=== PATIENT | female | born 1970 | race American Indian/Alaskan Native ===

== ENCOUNTER 2020-06-01 16:40 | Inpatient (IN) | payer BC, OTHER ==
[~2020-06-01] VITALS: Ht 160 cm; Wt 115.0 kg
[~2020-06-01 16:40] MED LIST: ALLEGRA ALLERGY60 MG PO; FLUTICASONE PRO16 GM NAS; IBU600 MG PO; METFORMIN HCL500 M2 PO; ZESTRIL40 MG PO
[2020-06-01] MEDS ORDERED: CRESTOR10 MG PO (17:12)
--- NOTE | 2020-06-01 19:15 | NUR ---
pt ARRIVED TO FLOOR. AMBULATED FROM STRETCHER TO BED. HELLEN ELLIOTT IN ROOM TO DO ADMISSION.
--- NOTE | 2020-06-01 19:40 | NUR ---
pt RESTING IN BED. VSS. ORIENTATION TO ROOM AND CALL LIGHT PROVIDED. IVF INFUSING WNL. pt DENIES ANY NEEDS AT THIS TIME. NPO STATUS, EDUCATION PROVIDED, pt VERBALIZES UNDERSTANDING.
--- NOTE | 2020-06-01 20:54 | NUR ---
ASSESSMENT DONE. pt REPORTED 3/10 PAIN AT REST, INCREASED TO 6 WHEN AMBULATING TO BATHROOM. IV ANTIBIOTICS INFUSING (SEE MAR). DR LEI TO ROOM.
--- NOTE | 2020-06-01 22:34 | NUR ---
pt SIGNED CONSENT FORM. DISCUSSED PLAN OF CARE. IV ANTIBIOTIC INFUSING AND BOLUS RUNNING (SEE MAR). pt UP TO VOID. BACK TO BED. REPORTED 4/10 PAIN, REQUESTED PRN PAIN MED GIVEN (SEE MAR). DISCUSSED HOME CPAP USE. AFTER CONSULTING WITH RT, pt DECIDED TO SLEEP ELEVATED TONIGHT AND HAVE HER HOME CPAP BROUGHT IN TOMORROW. CALL LIGHT WITHIN REACH.
--- NOTE | 2020-06-01 23:49 | NUR ---
BOLUS INFUSED. IVF INFUSING (SEE MAR). pt REPORTED PAIN IS IMPROVED, REFUSED MEDS A THIS TIME.
--- NOTE | 2020-06-02 00:40 | NUR ---
IV PUMP ALARMING. pt RESTING IN BED. NO REQUESTS AT THIS TIME. CALL LIGHT WITHIN REACH.
--- NOTE | 2020-06-02 02:45 | NUR ---
ASSESSMENT DONE. pt REPORTED 6/10 PAIN, PRN GIVEN (SEE MAR). pt REPORTED DISCOMFORT IN LEFT ARM WITH IV, BLOOD RETURN NOTED. ASSISTED TO REPOSITION. NO FURTHER REQUESTS AT THIS TIME CALL LIGHT WITHIN REACH.
--- NOTE | 2020-06-02 04:20 | NUR ---
ROUNDED ON pt. SNORING. RESPIRATIONS UNLABORED AND REGULAR. CALL LIGHT WITHIN REACH.
--- NOTE | 2020-06-02 05:46 | NUR ---
IV ANTIBIOTIC GIVEN (SEE MAR). pt REPORTED 3/10 PAIN, "OKAY FOR RIGHT NOW" DISCUSSED PAIN MANAGEMENT. VITALS AND I&O RECORDED. CALL LIGHT WITHIN REACH.
--- NOTE | 2020-06-02 06:27 | NUR ---
pt REPORTED 5/10 PAIN, PRN GIVEN (SEE MAR). CALL LIGHT WITHIN REACH.
--- NOTE | 2020-06-02 06:28 | NUR ---
pt ARRIVED AT BEGINNING OF SHIFT. NPO SINCE BEFORE 1999. IV PAIN MEDS X3. SBA. IVF AND ANTIBIOTICS. SCDS. CONSENT SIGNED AND ON CHART. USES CALL LIGHT APPROPRIATELY.
--- NOTE | 2020-06-02 07:05 | NUR ---
In room for bedside assessment given by Angelina MACEDO. Pt is NPO. Pt reports 3/10 pain and no nausea. Pt lying in bed, table and call light within reach.
[2020-06-02] MEDS ORDERED: FENOFIBRATE160 MG PO (07:10)
[2020-06-02] MEDS ORDERED: HYDROCHLOROTHIA25 MG PO (07:15)
--- NOTE | 2020-06-02 07:58 | HP ---
[facility] [address], [place] [address] Signed ADMISSION DATE: 06/01/2020 PROBLEM: Inflammatory segment of small bowel with extraperitoneal air. HISTORY OF PRESENT ILLNESS: This morbidly obese 49-year-old [place] woman is known to me from the past having undergone laparoscopic cholecystectomy in 2007. Additionally, she underwent colonoscopy by me in March 2019, where she was noted to have extensive sigmoid diverticulosis. She has had approximately four days of nagging srv-xe-khvzs abdominal pain, which has worsened overtime. Her pain is most dominant in the left lower quadrant. She presented to the emergency room for this problem after being evaluated by Dr. Pena, at [facility], who thought her likely to have acute diverticulitis. She was seen at approximately [address] Calderon, who thought likely she had acute diverticulitis based on tenderness in the left lower abdomen and known diverticulosis. Lab studies were essentially normal with a white count of only 10.6, hematocrit of 34.6, a platelet count of 310,000, and normal electrolytes. A CT scan of the pelvis was performed confirming the clinical diagnosis, which showed diverticulosis, but did not show diverticulitis per se. Instead there was a focal segment of small bowel in the mid jejunum located in the left mid abdomen with surrounding soft tissue stranding inflammatory changes and multiple pockets of small extraluminal gas within the adjacent small bowel mesentery. This was most consistent with a small bowel perforation. Fatty liver was noted as well as significant abdominal wall obesity. She is admitted for further evaluation and care. PAST MEDICAL HISTORY: Significant for morbid obesity, as previously noted. Additionally, she has undergone cholecystectomy as described. She is considered to have qfs-yzniocd-hzpqjezoh diabetes mellitus. She does not smoke. In addition to her obesity, she does have hypertension and some reactive airways. ALLERGIES: She has no known drug allergies. CURRENT MEDICATIONS: Include, 1. Sonal 60 mg p.o. daily for allergies. 2. Crestor (Rosuvastatin) 20 mg p.o. daily. 3. Flovent 50 mcg daily. Electronically Signed By: VIC LEI MD 06/02/20 0758 PATIENT NAME: KAILEE ORTIZ HISTORY AND PHYSICAL DATE OF : 66 REPORT #: [id number] PHYSICIAN: VIC LEI MD PCP: ENRICO PENA MD REPORT IS CONFIDENTIAL AND NOT TO BE RELEASED WITHOUT AUTHORIZATION [facility] [address], [place] [address] Signed 4. Hydrochlorothiazide 25 mg p.o. daily. 5. Motrin 800 mg p.o. daily. 6. Zestril (lisinopril) 40 mg p.o. daily. 7. Metformin extended release 500 mg p.o. daily. REVIEW OF SYSTEMS: She feels a bit thirsty. Abdominal pain is persistent and located in the low abdomen in a bandlike configuration. She has no upper abdominal pain. She is not particularly hungry. She does not feel nauseated. PHYSICAL EXAMINATION: GENERAL: Very obese [place] woman, accompanied by her . HEENT: Mucous membranes are dry. Trachea is midline. CHEST: Clear. HEART: Regular without murmur. ABDOMEN: Quite markedly obese. There is tenderness in the left mid abdomen and to lesser extent in the left lower quadrant. She does have some mild diffuse tenderness as well. EXTREMITIES: Show no clubbing, cyanosis, or edema. LABORATORY DATA: Lab studies are as previously noted. CT scan was reviewed and report reviewed as well. Numerous diverticula are seen without sign of acute diverticulitis to my examination. The small bowel in question appears to be on the left side of the abdomen above the level of the umbilicus. ASSESSMENT AND PLAN: The patient has a segment of inflamed small bowel to the left of the abdomen, initially presenting as clinical diverticulitis. There is no evidence of diverticulitis per se at this point. The possibility of perforation of the segment of small bowel due to toothpick or other implement is always considered. The patient denies any recent ingestion of any food that may have a bone or toothpick, and therefore that etiology is somewhat less likely. The possibility of a small bowel diverticulum with perforation is also considered. She does not have generalized free air and the extraluminal air noted on these images seems to be well contained with surrounding fat, mostly from mesentery. She is begun on broad-spectrum antibiotic meropenem and will undergo additional fluid resuscitation. Likely she will need laparoscopy and even possibly laparotomy to reconcile this problem. Unlike perforated diverticulitis, perforation of small bowel with extraluminal air is more appropriately treated with surgical intervention, then observation and antibiotics alone. We discussed all this. Electronically Signed By: VIC LEI MD 06/02/20 0758 PATIENT NAME: KAILEE ORTIZ HISTORY AND PHYSICAL DATE OF : 66 REPORT #: [id number] PHYSICIAN: VIC LEI MD PCP: ENRICO PENA MD REPORT IS CONFIDENTIAL AND NOT TO BE RELEASED WITHOUT AUTHORIZATION [address] [address] Signed MD QUIN Willis/MODL /[id number] cc: Jean-Pierre Pena MD Copies: JEAN-PIERRE CALDERON JAMES MD ~ Electronically Signed By: VIC LEI MD 06/02/20 0758 PATIENT NAME: KAILEE ORTIZ PRAMOD HISTORY AND PHYSICAL DATE OF : 66 REPORT #: [id number] PHYSICIAN: VIC LEI MD PCP: ENRICO PENA MD REPORT IS CONFIDENTIAL AND NOT TO BE RELEASED WITHOUT AUTHORIZATION
--- NOTE | 2020-06-02 08:35 | NUR ---
In room for pt assessment and med pass. Pt reports 3/10 resting pain and no nausea. Pt assessment complete, VSS, see charting. Pt able to take meds without difficulty. Gladys CHAN in room assisting with cares, appropriately. Pt alert and oriented and pleasant upon greeting and assessment. Pt sitting up in bed, table and call light within reach.
--- NOTE | 2020-06-02 10:22 | NUR ---
In room for rounding, pt reports no nausea and 3/10 resting pain. Pt anticipating procedure sometime today, no specific time given. Pt going to have clorhexadine wipedown done now as it is good for 6hrs. Pt sitting up in bed, bed in lowest position, table and call light within reach. in the room.
--- NOTE | 2020-06-02 10:45 | NUR ---
Spoke with Tahira, she lives with her family with 5 people in her home. States everyone will help her if needed. DC plan is pending depending on TF surgery today.
--- NOTE | 2020-06-02 10:53 | NUR ---
PT ALERT, ORIENTED AND SUPPORTED BY HER SASHA. PT IS PLEASANT AND FEELS SHE IS INFORMED ABOUT POC. SHE KNOWS DR LEI IS FITTING HER INTO HIS SURGERY SCHEDULE TODAY AND HOPES TO HAVE JUST A LITTLE NOTICE BEFORE TO GET HERSELF EMOTIONALLY READY.PT CAME THINKING SHE WOULD BE GIVEN SOME MEDS AND SENT HOME.PT INSTEAD IS HAVING SURGERY. INFORMED SUPERVISING NURSE YVETTE REGARDING NOTICE GIVEN TO PT IF POSSIBLE. PT REQUESTED PRAYER, WILL FOLLOW
--- NOTE | 2020-06-02 11:26 | NUR ---
In room for rounding. Pt back in bed, after being in the chair a while. Pt had her pre-surgical chlorhexadine bath and is awaiting her procedure with new gown and LR w/straight tubing reading at bedside. Pt reports 3/10 pain and no nausea. Pt left in bed, table and call light within reach.
--- NOTE | 2020-06-02 11:34 | NUR ---
In room. Pt up to bathroom. Pt reports increased pain but no dizziness or nausea upon standing or ambulating. Pt back to bed, awaiting procedure. Table and call light within reach. at bedside, TV on.
--- NOTE | 2020-06-02 12:45 | NUR ---
Pt left for procedure, picked up by Kristen [employer]EC[employer]ODUC[employer]. Kristen made aware that pt wears CPAP at night at home. Pt just made us aware.
--- NOTE | 2020-06-02 12:49 | NUR ---
PT TO THE OR AT THIS TIME VIA BED. FLAGYL ABX SENT TO OR WITH PATIENT AND WAS GIVEN TO DIPAK MACEDO. THIS ABX IS DUE AT 1400.
--- NOTE | 2020-06-02 16:07 | NUR ---
06/02/20 1607 Liliana Dupree 1554- PT ARRIVES TO PACU NONAROUSABLE TO NOXIOUS STIMULI WITH AN OPA IN PLACE. RESP EVEN AND UNLABORED. OXYGEN SAT MID TO HIGH 90'S ON 10L VIA MASK. PT WILL PERIODICALLY OBSTRUCT. PT NEEDING A JAW LIFT WELL TO MAINTAIN PATENT AIRWAY. 8957- PT'S PILLOW REMOVED AND HEAD ADJUSTED TO MAINTAIN PATENT AIRWAY WITHOUT JAW LIFT. OPA REMAINS IN PLACE.
--- NOTE | 2020-06-02 17:00 | NUR ---
Pt brought to the floor by Liliana MACEDO from surgery. Pt ended up having a lap-assisted small bowel resection, x3 lap sites, currently not draining. Pt procedure went well, only difficulty is keeping pts oxygen sat WNL, pt currently on 3L oxygen via NC satting at 99%. Pt reports 6/10 pain but wants to "wait a while before trying the morphine". SCDs on, table and call light within reach, CPOX on, in room.
--- NOTE | 2020-06-02 18:51 | NUR ---
PT UP TO THE BS COMMODED VOIDED AND THEN BACK TO BED. SOME LIGHTHEADNESS NOTED, BUT PT STEADY ON HER FEET. AT THE BEDSIDE DENIES AND ISSUES AT THIS TIME. THE TV REMAINS OUT OF SERVICE.
--- NOTE | 2020-06-02 19:16 | NUR ---
RECEIVED REPORT FROM HELLEN KWON. pt RESTING IN BED. REPORTED 3/10 PAIN. VISUALIZED LAP SITES, SCANT DRIED DRAINAGE ON STERISTRIPS. ON 3L O2 AT 99%. TITRATED TO ROOM AIR MAINTAINING SATS >95%. TAKING SIPS OF WATER. NO REQUESTS AT THIS TIME. CALL LIGHT WITHIN REACH. VITALS RECORDED.
--- NOTE | 2020-06-02 20:00 | NUR ---
IN TO DO LAST SET OF POST OP VITALS. PROVIDED JUICE AND JELLO. NO CHANGES IN LAP SITES. CALL LIGHT WITHIN REACH.
--- NOTE | 2020-06-02 20:22 | NUR ---
CALL LIGHT ON. pt HAD SLIGHT INCONT. VOID. UP SBA TO BSC. LINENS CHANGED. BACK TO BED. SATS >95% ON ROOM AIR. CALL LIGHT WITHIN REACH.
--- NOTE | 2020-06-02 21:40 | NUR ---
IN TO DO ASSESSMENT. pt UP TO VOID AND BACK TO BED, SBA. DR LEI ROUNDED. pt's QUESTIONS ANSWERED. ASSESSMENT DONE. NO CHANGES TO DRESSINGS. MEDICATIONS GIVEN (SEE MAR), PAIN 6/10 PRN PAIN MEDS GIVEN. SETTLED IN BED WITH HOME CPAP. SCDS ON. CALL LIGHT WITHIN REACH.
--- NOTE | 2020-06-02 21:42 | PATH ---
[facility] [address], [place] [address] Signed ORDERING PHYSICIAN: Nimisha Younger MD PATIENT NAME: KAILEE ORTIZ GENDER: F : 1970 Prior History: No cases found. SPECIMEN(S): MOLECULAR PATHOLOGY RESULTS: SARS-CoV-2 Not Detected ADDITIONAL NOTES.: The [place] Fusion SARS-CoV-2 Assay is a multiplex real-time PCR (RT-PCR) in vitro diagnostic test intended for the qualitative detection of RNA from SARS-CoV-2 from individuals who meet COVID-19 clinical and/or epidemiological criteria. In general, SARS-CoV-2 RNA can be detected during the acute phase of infection. Positive results indicate the presence of SARS-CoV-2 RNA. Clinical correlation with patient history and other diagnostic information is necessary to determine patient infection status. Positive results do not rule out bacterial infection or co-infection with other viruses. Negative results do not preclude SARS-CoV-2 infection and should not be used as the sole basis for patient management decisions. Negative results must be combined with other clinical observations, patient history, and epidemiological information. The [place] Fusion SARS-CoV-2 Assay is not yet approved or cleared by the [place] FDA. When there are no FDA-approved or cleared tests available, and other criteria are met, FDA can make tests available under an emergency access mechanism called an Emergency Use Authorization (EUA). The EUA for this test is supported by the Office Analyst of Health and Human Service's (HHS's) declaration that circumstances exist to justify the emergency use of in vitro diagnostics for the detection and/or diagnosis of the virus that causes COVID-19. This EUA will remain in effect for the duration of the COVID-19 declaration justifying emergency of IVDs, unless it is terminated or revoked by FDA, after which the test may no longer be used. The [place] Fusion SARS-CoV-2 Assay is for use only under EUA PATIENT NAME: KAILEE ORTIZ PRAMOD PATHOLOGY DATE OF : 66 REPORT #: [id number] PHYSICIAN: BRENDEN PATHOLOGY PCP: ENRICO FOWLER MD REPORT IS CONFIDENTIAL AND NOT TO BE RELEASED WITHOUT AUTHORIZATION [facility] [address] [place] [id number] Signed in laboratories certified under the Clinical Laboratory Improvement Amendments of 1988 (CLIA) to perform high complexity tests. [facility] is certified under CLIA to perform high complexity clinical laboratory testing. PERFORMING LABORATORY.: Molecular testing was performed by [facility] [place] [address] (Software Quality Automation Engineer: Mohsen Perez D.O.; CLIA#: [id number]) Diagnostician: System Interface Pathologist Electronically Signed 06/02/2020 Copies: ~ PATIENT NAME: KAILEE ORTIZ PRAMOD PATHOLOGY DATE OF : 66 REPORT #: [id number] PHYSICIAN: BRENDEN KAT PCP: ENRICO FOWLER MD REPORT IS CONFIDENTIAL AND NOT TO BE RELEASED WITHOUT AUTHORIZATION
--- NOTE | 2020-06-02 22:27 | NUR ---
ROUNDED ON pt. RESTING IN BED WITH CPAP ON, RESPIRATIONS REGULAR AND UNLABORED. CALL LIGHT WITHIN REACH.
--- NOTE | 2020-06-03 00:25 | NUR ---
ROUNDED ON pt. RESTING IN BED WITH EYES CLOSED, CPAP IN PLACE. O2 SAT 94%. CALL LIGHT WITHIN REACH.
--- NOTE | 2020-06-03 01:25 | NUR ---
IN TO DO VITALS. pt AWAKE ON CPAP. UP TO VOID AND BACK TO BED. NO CHANGES ON INCISION SITES. ASSESSMENT DONE. PRN PAIN MEDS FOR 5/10 PAIN. CALL LIGHT WITHIN REACH.
--- NOTE | 2020-06-03 02:00 | NUR ---
IV BEEPING, ERROR RESOLVED. pt REPORTED THAT PAIN IS "OKAY" DENIED NEED FOR MORE PAIN MEDICATION AT THIS TIME. CALL LIGHT WITHIN REACH.
--- NOTE | 2020-06-03 03:39 | NUR ---
IV PUMP BEEPING, ERROR RESOLVED. NO REQUESTS AT THIS TIME. CALL LIGHT WITHIN REACH.
--- NOTE | 2020-06-03 04:05 | NUR ---
CALL LIGHT ON. pt UP TO VOID AND BACK TO BED. NO FURTHER REQUESTS AT THIS TIME. CALL LIGHT WITHIN REACH.
--- NOTE | 2020-06-03 04:32 | NUR ---
pt UP TO VOID AND BACK TO BED. REPORTED SLIGHT AMOUNT OF NAUSEA THAT SUBSIDED QUICKLY. RESTING IN BED. NO FURTHER REQUESTS AT THIS TIME. CALL LIGHT WITHIN REACH.
--- NOTE | 2020-06-03 05:47 | NUR ---
IN TO GIVE MEDICATIONS (SEE MAR). pt REPORTED 4/10 PAIN, PRN GIVEN. REPORTED NAUSEA, PRN GIVEN. VITALS AND I&O RECORDED. NO FURTHER REQUESTS AT THIS TIME. CALL LIGHT WITHIN REACH.
--- NOTE | 2020-06-03 06:43 | NUR ---
IV PUMP BEEPING, ERROR RESOLVED. pt REPORTED THAT PAIN IS "OKAY" AND NAUSEA HAS IMPROVED. CALL LIGHT WITHIN REACH.
--- NOTE | 2020-06-03 07:10 | NUR ---
To bedside for morning shift report from Humaira MACEDO. Report included that pt was on CPAP through the night and off before 0530. The pt had VSS and an uneventful evening. Pt lying in bed, eyes closed, table and call light within reach.
--- NOTE | 2020-06-03 07:49 | NUR ---
Call from [facility] for update and chart notes sent as requested.
--- NOTE | 2020-06-03 08:30 | NUR ---
In room for morning assessment and med pass. Pt assisted to bathroom, was able to void 300mls of dark yellow clear urine. Pt up to chair for breakfast. Pt verbalizes that she is feeling good this morning and agrees to ambulate with me later this morning. Pt tolerating clear diet well, pt has been able to pass gas this morning. Pt assessment complete, VSS. Pt able to take all meds without difficulty. Pt left in chair, table and call light within reach, in room.
--- NOTE | 2020-06-03 10:21 | NUR ---
In room for rounding. Pt up to bathroom, and returned to chair. Pt reports "feeling good" and has no nausea and minimal pain. Pt to chair, table and call light within reach, in the room.
--- NOTE | 2020-06-03 10:40 | NUR ---
Spoke with pt, spouse is in the room. She denies complaints and states she is feeling better today following surgery. Denies needs.
--- NOTE | 2020-06-03 10:45 | NUR ---
Pt able to ambulate one full lap around both nurses stations. Pt tolerated it well, reporting no pain or nausea before or after. Pt had one moment of dizziness lasting about 2 seconds when she turned her head too quickly while talking. It resolved quickly and pt denied dizziness any other time during ambulation. Pt returned to room and chair, table and call light within reach. at bedside.
--- NOTE | 2020-06-03 11:15 | NUR ---
In room for rounding. Pt sitting up in chair, reporting no pain or nausea, table and call light within reach, at bedside.
--- NOTE | 2020-06-03 11:58 | NUR ---
In room responding to call light, pt IV pump alarming. Pt ABX infusion complete. Pt reports swollen hands and feet, minimal swelling present in hands and feet. IV fluids stopped since pts hydration status is WNL, voiding sufficiently and taking in oral fluids sufficiently. Pt sitting in chair, table and call light within reach, at bedside.
--- NOTE | 2020-06-03 11:59 | NUR ---
PT ALERT, ORIENTED AND JUST SITTING DOWN IN CHAIR. GAVE ASSISTANCE AND ALSO ENCOURAGEMENT. PT EXPLAINED HER SURGERY, PAIN DOWN FROM 8 TO 2. IN RM. GAVE P.BENJAWL AND G.POST WITH BLESSING.
--- NOTE | 2020-06-03 12:23 | NUR ---
In room for rounding. Pt sitting up in chair having her clears lunch. Pt reports no pain or nausea. Table and call light within reach, at bedside.
--- NOTE | 2020-06-03 13:55 | NUR ---
PT MEDICATED WITH 100MG TYLENOL AND 30MG IVP TORDAL AT THIS TIME FOR ABD PAIN. PT REMAINS UP IN THE CHAIR AT THIS TIME.
--- NOTE | 2020-06-03 15:50 | NUR ---
In room for rounding. Pt and watching tablet. Pt reports no pain or nausea. Table and call light within reach.
--- NOTE | 2020-06-03 16:06 | NUR ---
PATIENT CHANGED HER GOWN AND ALSO WE DID A SHAMPOO CAP I COMBED IT AND PUT A LOOSE BRAID. PATIENT IS SITTING UP IN HER CHAIR WATCHING A MOVIE WITH A FAMILY MEMBER IN HER ROOM. ALSO SHE AND I AND FAMILY MEMBER DID TWO AND HALF LAPS AROUND MED SURG.
--- NOTE | 2020-06-03 17:20 | NUR ---
In room for rounding. Pt was up to bathroom. Pt had her first BM since surgery! Pt back to the chair, table and call light within reach.
--- NOTE | 2020-06-03 19:04 | NUR ---
RECEIVED REPORT FROM HELLEN KWON. pt RESTING IN CHAIR. REPORTED PASSING GAS, A BM, AND WALKING. PAIN IS "OKAY, JUST A LITTLE SORE." DISCUSSED PLAN OF CARE AND PAIN MANAGEMENT. NO REQUESTS AT THIS TIME. WHITEBOARD UPDATED.
--- NOTE | 2020-06-03 20:50 | NUR ---
CALL LIGHT ON. pt VOICED CONCERN ABOUT IV, ASSESSED, FLUSHES WELL NO PAIN AT SITE, NO REDNESS. WILL CONTINUE TO MONITOR. ASSESSMENT DONE, DRESSING INTACT, NO NEW DRAINAGE NOTED. VITALS AND I&O RECORDED. MEDICATIONS GIVEN (SEE MAR). pt REPORTED A HEADACHE. DISCUSSED PAIN MANAGEMENT. pt AMBULATED SBA TO BED. CPAP SETUP. NO FURTHER REQUESTS AT THIS TIME. CALL LIGHT WITHIN REACH.
--- NOTE | 2020-06-03 22:00 | NUR ---
IN TO GIVE PAIN MEDS AND IV ANTIBIOTIC. pt REPORTED 2/10 PAIN. NO FURTHER REQUESTS AT THIS TIME. IV ABX INFUSING. CALL LIGHT WITHIN REACH.
--- NOTE | 2020-06-03 22:55 | NUR ---
CALL LIGHT ON. pt HAD INCONT VOID. AMB TO BSC AND BACK TO BED. FRESH GOWN. IV ANTIBIOTIC COMPLETE. SL. CALL LIGHT WITHIN REACH.
--- NOTE | 2020-06-03 23:20 | NUR ---
CALL LIGHT ON. pt UP TO VOID, INCONT OF URINE. REQUESTED TO WALK. AMB IN HALLS X3 LAPS. BACK TO BED. CALL LIGHT WITHIN REACH.
--- NOTE | 2020-06-04 01:27 | NUR ---
ROUNDED ON pt. RESTING IN BED WITH CPAP IN PLACE. RESPIRATIONS REGULAR AND UNLABORED. CALL LIGHT WITHIN REACH.
--- NOTE | 2020-06-04 03:52 | NUR ---
CALL LIGHT ON. pt REPORTED TO VOIDS, INDEPENDENT IN THE ROOM. ASSESSMENT DONE. INCISIONS UNCHANGED, BOWEL TONES ACTIVE. REPORTED PAIN IS "OKAY" REFUSED PAIN MEDICATION AT THIS TIME. CALL LIGHT WITHIN REACH.
--- NOTE | 2020-06-04 06:10 | NUR ---
pt REPORTED VOID. IV ANTIBIOTICS INFUSING. REPORTED 3/10 PAIN. PRN GIVEN (SEE MAR). CALL LIGHT WITHIN REACH.
--- NOTE | 2020-06-04 07:25 | NUR ---
Received morning shift report from Humaira MACEDO. In report: Pt had a few incontinent episodes last night, due to urgency (and not getting the SCDs off fast enough). Pt has been ambulating frequently and is otherwise independent in the room, so SCDs were removed/DCd. Pt in bed, eyes closed, breathing even and unlabored. Table and call light within reach. Off CPAP since around 0500 this morning.
--- NOTE | 2020-06-04 07:47 | NUR ---
PATIENT SITTING UP IN BED. WHITE BOARD UPDATED. CALL LIGHT WITHIN REACH. NO OTHER NEEDS AT THIS TIME
--- NOTE | 2020-06-04 09:11 | NUR ---
PATIENT SITTING UP IN BED. RN IN ROOM. VITAL SIGNS DONE BY RN. I&O DONE. CALL LIGHT WITHIN REACH. NO OTHER NEEDS AT THIS TIME
--- NOTE | 2020-06-04 10:10 | NUR ---
In room for rounding. Pt up walking and conversing with her . Pt denies pain and nausea at this time. Pt left as she was. table and call light within reach.
--- NOTE | 2020-06-04 11:30 | NUR ---
In room for rounding. Pt was up walking around and playing cards with . Pt reports no pain or nausea at this time. Pt left as she was, with no further needs at this time.
--- NOTE | 2020-06-04 11:48 | NUR ---
PATIENT AMBULATING IN THE HALLWAY WITH HER
--- NOTE | 2020-06-04 13:24 | NUR ---
PATIENT SITTING UP IN CHAIR. VITAL SIGNS AND I&O DONE. CALL LIGHT WITHIN REACH. NO OTHER NEEDS AT THIS TIME
[2020-06-04] MEDS ORDERED: ACETAMINOPHEN500 MG PO (13:48)
[2020-06-04] MEDS ORDERED: BACTRIM DS TAB1 EACH PO (13:49)
[2020-06-04] MEDS ORDERED: MOTRIN IB200 MG PO (13:51)
--- NOTE | 2020-06-04 14:25 | NUR ---
CALL LIGHT ANSWERED. PATIENT SITTING UP IN CHAIR. IN ROOM. PATIENT ASKS FOR PAIN MEDICATION. RN NOTIFIED. CALL LIGHT WITHIN REACH. NO OTHER NEEDS AT THIS TIME
--- NOTE | 2020-06-04 15:19 | NUR ---
In room for DC. Pt given DC packet. Pt and verbalize understanding of DC instructions, medications, and follow up care plans. All questions answered. Pt VSS. Pt IV DCd WNL. Pt left to dress herself. Will call when ready to walk out with wheelchair.
--- NOTE | 2020-06-04 15:35 | NUR ---
PATIENT SITTING UP IN CHAIR. IN ROOM. THE FINAL VITAL SIGNS WERE OBTAINED PRIOR TO DISCHARGE FROM THE UNIT
--- NOTE | 2020-06-06 15:17 | OR ---
[facility] [address], [place] [address] Signed DATE OF OPERATION: 06/02/2020 SURGEON: Vic Lei MD PREOPERATIVE DIAGNOSES: 1. Perforated small bowel with perienteric fluid collection in inflammatory process. 2. Morbid obesity. POSTOPERATIVE DIAGNOSES: 1. Perforated small bowel with perienteric fluid collection in inflammatory process. 2. Morbid obesity. 3. Distinct defect in mesenteric aspect of mid jejunum with associated intramesenteric process. No evidence of foreign body. PROCEDURES: Laparoscopic assisted small bowel resection with extra-abdominal enteroenterostomy (end-to-end). ANESTHESIA: General endotracheal, Wesley Annmarie, LAW WRITER and local 20 mL of 0.25% Marcaine with epinephrine. INDICATIONS: This morbidly obese 49-year-old [place] woman is a patient of Dr. Enrico Pena of [facility], was having left-sided abdominal pain. She is known to me from the past having undergone colonoscopy and known to have diverticulosis. Her left-sided abdominal pain was suggestive of acute diverticulitis. She presented to the emergency room, where she was noted to have tenderness in the mid left abdomen. She was evaluated by Dr. Calderon, who initially thought this represented rather typical diverticulitis. A CT scan was performed, which showed diverticulosis of the sigmoid and left colon, but the process was in fact an inflammatory area of thickening with extraluminal air and coiled up mid jejunum. These symptoms have been going on for several days at least three and possibly four. HOSPITAL COURSE: The patient was fluid resuscitated, given intravenous antibiotics, meropenem and prepared for operation today. She understands as does her the risks of bleeding, infection, need for large Electronically Signed By: VIC LEI MD 06/06/20 1517 PATIENT NAME: KAILEE ORTIZ OPERATIVE REPORT DATE OF : 66 REPORT #: [id number] PHYSICIAN: VIC LEI MD PCP: ENRICO PENA MD REPORT IS CONFIDENTIAL AND NOT TO BE RELEASED WITHOUT AUTHORIZATION [facility] [address], [place] [address] Signed laparotomy, and other unforeseen complications related to operation and wished to proceed. FINDINGS: Laparoscopy was performed, which allowed for localization of the abnormality. This allowed for the small bowel to be brought to the upper midline incision, allowing for a very small upper midline incision to deliver the small bowel and more fully examined and provide resection. There appeared to be abscess cavity in the mesentery associated with mid jejunum. Segmental resection of that bowel and the offending mesentery was undertaken. Examination of the specimen showed a defect in the bowel wall directly into the cavity. I saw no foreign body such as toothpick, bone, or other abnormality that would have accounted for this. It was a well-formed passageway, and although possibly a mesenteric diverticulum from the small bowel, probably not in fact. I saw no other such findings in the remaining small bowel. The operation was accomplished through a very small incision minimizing chance of a postoperative morbidity and hernia and so. DESCRIPTION OF PROCEDURE: The patient was brought to the operating room, given a general endotracheal anesthetic. Ayala catheter was placed. A very large and obese abdominal area was prepared with a chlorhexidine solution and draped sterilely. She had been on antibiotic meropenem. Sequential compression device stockings used and heparin subcutaneously administered. After sterile draping, an infraumbilical incision was made and using an open Cara cannula technique, the abdomen was entered and pneumoperitoneum achieved to a level of 14 mmHg of carbon dioxide gas. Intraabdominal inspection showed some inflammatory fluid over the dome of the liver. The liver itself appeared normal. Examination on the left and right sides of the abdomen did not reveal the process in question. I changed the side of the table to be on the patient's right. An epigastric 12 mm port was placed and the camera placed to that site. Examination of the left side of the abdomen corresponding to the CT scan findings was then undertaken. Single hand manipulation of the omentum and so forth did not reveal the abnormality. A 5 mm right upper quadrant port was then placed with two hand manipulation. The omentum could be more fully mobilized. The left colon and sigmoid were identified as normal. The small bowel was carefully manipulated and there appeared to be a thickened air in the upper aspect. Ultimately, the camera was replaced to the umbilical site in the operating hand on the left through the epigastric port. A thickened area of bowel and obvious inflammatory process with air bubbles within the mesentery adjacent to mid jejunal segment was noted. The mesentery is rather stiff, but not prohibitively so. It was deemed most advisable to deliver the bowel into a small incision at the site of the trocar to better characterize it and provide remedy. The infraumbilical port and right upper quadrant ports were removed and the Electronically Signed By: VIC LEI MD 06/06/20 1517 PATIENT NAME: KAILEE ORTIZ OPERATIVE REPORT DATE OF : 66 REPORT #: [id number] PHYSICIAN: VIC LEI MD PCP: ENRICO PENA MD REPORT IS CONFIDENTIAL AND NOT TO BE RELEASED WITHOUT AUTHORIZATION [facility] [address], [place] [address] Signed infraumbilical port site reapproximated with interrupted 0-Vicryl suture. It was later closed with interrupted 0-PDS as well. With a trocar in place and the grasper still holding the bowel into the area of the epigastric trocar site, the incision was extended just a few centimeters, ultimately dividing the fascia and delivering the grasper with the small bowel in place. This allowed for mobility of the small bowel out of the wound entirely. Examination showed the bowel itself on the serosal side to be essentially normal, but an inflammatory process in the mesenteric side consistent with perforation of the mesenteric side. Resection of the area was deemed most appropriate. The mesentery corresponding to the abnormality was scored with electrocautery and hemostats applied to the mesentery, which were then secured with 0-silk ties. Meticulous care was maintained to sustain hemostasis. Inflammatory, purulent-appearing fluid was noted in the mesentery. Gram stain and cultures were obtained. Abhishek clamps were applied to the ends of the bowel for planned resection, a segment approximately 6 cm was designated as appropriate to incorporate the pathologic problem. An end-to-end enteroenterostomy was undertaken in a two-layer technique of interrupted 3-0 silk suture in the serosal layer and interrupted 3-0 Vicryl in the mucosal layer. Optimal anastomosis was accomplished. The mesentery was secured with interrupted 3-0 silk suture. Photographs were taken throughout. Irrigation was undertaken. The small bowel was returned to the abdomen. The midline fascia was reapproximated with running #1 PDS suture. Subcutaneous tissue irrigated and skin closed with running subcuticular 3-0 Vicryl, the skin incision was quite small, probably 4 cm at most. The infraumbilical fascial incision was reinforced with 0-PDS suture as well. The skin was then closed with interrupted 3-0 Vicryl in the infraumbilical area and right lateral 5 mm port site and a running subcuticular 3-0 Vicryl for the skin at the epigastric incision site. Steri-Strips were applied as well as a silver sponge dressing in the epigastric site. The patient was ultimately extubated and transferred to the recovery room in good condition, having suffered no complication. Of note, the segment that was resected was examined closely and there was a distinct defect in the mesenteric side leading to the inflammatory process of the mesentery. Whether this represented a diverticulum or a perforation is uncertain; however, the cavity seemed to have no foreign body to suggest foreign body perforation. There was Electronically Signed By: VIC LEI MD 06/06/20 1517 PATIENT NAME: KAILEE ORTIZ OPERATIVE REPORT DATE OF : 66 REPORT #: [id number] PHYSICIAN: IVC LEI MD PCP: ENRICO PENA MD REPORT IS CONFIDENTIAL AND NOT TO BE RELEASED WITHOUT AUTHORIZATION [facility] [address] [place] [address] Signed significant thickening on the mesenteric side of the small bowel, which could indicate an infectious process. Vic Lei MD /MODL /[id number] cc: Jean-Pierre Pena MD Copies: JEAN-PIERRE CALDERON JAMES MD ~ Electronically Signed By: VIC LEI MD 06/06/20 1517 PATIENT NAME: KAILEE ORTIZ PRAMOD OPERATIVE REPORT DATE OF : 66 REPORT #: [id number] PHYSICIAN: VIC LEI MD PCP: ENRICO PENA MD REPORT IS CONFIDENTIAL AND NOT TO BE RELEASED WITHOUT AUTHORIZATION
--- NOTE | 2020-06-06 15:17 | DS ---
[facility] [address], [place] [address] Signed ADMISSION DATE: 06/01/2020 DISCHARGE DATE: 06/04/2020 REASON FOR ADMISSION: This morbidly obese 49-year-old woman is known to me from the past having undergone laparoscopic cholecystectomy in 2007 as well as colonoscopy by me in March of 2019, where she was noted to have extensive diverticular disease of the sigmoid colon. She presented to the emergency room with 4 days of nagging mid to lower abdominal pain, most dominant on the left side. She was evaluated by Dr. Pena at [facility], who thought her likely to have acute diverticulitis. She was seen approximately 5:[address] Calderon, ER physician, who thought she likely had acute diverticulitis based on her left lower abdominal tenderness and a white count of only 10.6. A CT scan was obtained, which showed no evidence of acute diverticulitis, though she did have diverticulosis, but she did have a segment of mid jejunum in the left abdomen with surrounding soft tissue stranding inflammatory changes and multiple pockets of extraluminal air. She was admitted for further evaluation and care. PERTINENT PHYSICAL EXAMINATION: GENERAL: Showed a morbidly obese, woman, who looks to be uncomfortable. HEENT: Mucous membranes are dry. Trachea midline. CHEST: Clear. HEART: Regular without murmur. ABDOMEN: Markedly obese. There is tenderness in the left mid abdomen and to a lesser extent in the left lower quadrant. She does have diffuse mild tenderness throughout as well. She has no clubbing, cyanosis, or edema of extremities. LABORATORY STUDIES: Showed hemoglobin of 10.6, hematocrit of 34.6, and platelet count 310,000. Normal electrolytes. HOSPITAL COURSE: The patient was admitted with an inflammatory process of small bowel with extraluminal air suggestive of perforation. Consideration that this may represent an ingested toothpick chicken bone or something of that sort was made; however, the patient denied eating any such things before. She was fluid resuscitated, given broad-spectrum antibiotic meropenem and the following day in the morning underwent laparoscopic evaluation. The area in question was identified as the mid jejunum. A laparoscopic assisted segmental small bowel resection was undertaken. There was indeed inflammatory change and abscess within the mesentery Electronically Signed By: VIC LEI MD 06/06/20 1517 PATIENT NAME: KAILEE ORTIZ DISCHARGE SUMMARY DATE OF : 66 REPORT #: [id number] PHYSICIAN: VIC LEI MD PCP: ENRICO PENA MD REPORT IS CONFIDENTIAL AND NOT TO BE RELEASED WITHOUT AUTHORIZATION [facility] [address], [place] [address] Signed corresponding to the mid jejunum. Segmental resection was undertaken in an extracorporeal way with end-to-end hand-sewn anastomosis. Gram stain and cultures were obtained. She tolerated the operation well. She was begun on clear liquids the night of operation and advanced to full liquids and ultimately to regular food the following day. The culture did demonstrate Serratia marcescens, which was pansensitive except to Ancef. She will be discharged home with a few days of Bactrim DS. We recalled her perioperative antibiotic regimen with meropenem, which would likely have broad coverage for such a finding. By the day of discharge, she is ambulating well, tolerating a regular diet, has had three bowel movements, and feeling much better. DISCHARGE MEDICATIONS: Include: 1. Tylenol 1000 mg p.o. q.6 hours as needed for pain, #60 of 500 mg tablets. 2. Bactrim DS one tablet p.o. b.i.d., #15. 3. Ibuprofen 200 mg tablets 3 tabs p.o. q.6 hours as needed for pain, #30, refill as needed. 4. She will resume her usual medications and fluticasone inhalation 1 to 2 nasally daily. 5. Lisinopril 40 mg p.o. daily. 6. Metformin 500 mg tablets extended release one p.o. daily. 7. Sonal Allergy (fexofenadine) 60 mg p.o. daily. 8. Rosuvastatin (Crestor) 10 mg p.o. at bedtime. 9. Fenofibrate 160 mg tablet one tablet p.o. daily. DISCHARGE DIAGNOSES: 1. Perforation of jejunal segment with localized abscess of the mesentery, status post laparoscopic assisted segmental bowel resection with end-to-end hand-sewn anastomosis (extracorporeal). 2. Morbid obesity. 3. Hypertension. 4. Dyslipidemia. 5. Diabetes. FOLLOWUP PLAN: She is return to see me in approximately 4 weeks. She will lift no more than 20 pounds for the next 2 weeks. She is permitted to shower. Electronically Signed By: VIC LEI MD 06/06/20 1517 PATIENT NAME: KAILEE ORTIZ PRAMOD DISCHARGE SUMMARY DATE OF : 66 REPORT #: [id number] PHYSICIAN: VIC LEI MD PCP: ENRICO PENA MD REPORT IS CONFIDENTIAL AND NOT TO BE RELEASED WITHOUT AUTHORIZATION [address] [address] Signed MD QUIN Willis/MODL /[id number] cc: Enrico Pena MD Copies: ENRICO PENA MD ~ Electronically Signed By: VIC LEI MD 06/06/20 1517 PATIENT NAME: KAILEE ORTIZ DISCHARGE SUMMARY DATE OF : 66 REPORT #: [id number] PHYSICIAN: VIC LEI MD PCP: ENRICO PENA MD REPORT IS CONFIDENTIAL AND NOT TO BE RELEASED WITHOUT AUTHORIZATION
== END 2020-06-04 15:40 | disposition home or self-care (01) | DRG 329 ==
LOC: ED 16:40 → MS 18:59
PROVIDERS: ADMIT Surgery; ATTEND Surgery
PROC: 0DBA0ZZ Excision of Jejunum, Open Approach (ICD-10-PCS; principal; 2020-06-02 09:45)
DX: K63.1 Perforation of intestine (nontraumatic) (principal); K65.1 Peritoneal abscess; Z68.41 Body mass index [BMI] 40.0-44.9, adult; Z20.828 Contact with and (suspected) exposure to other viral communicable diseases; E66.01 Morbid (severe) obesity due to excess calories; E11.9 Type 2 diabetes mellitus without complications; I10 Essential (primary) hypertension; E78.5 Hyperlipidemia, unspecified; Z79.899 Other long term (current) drug therapy; Z79.84 Long term (current) use of oral hypoglycemic drugs
CPT/HCPCS: 00790; 36415; 74177; 80048; 80053; 81001; 83690; 85025; 94760; 94762; 99285-25; C9803; J1100; J1644; J1885; J2001; J2185; J2270; J2370; J2405; J2704; J3010; J7030; J7121; Q9967

== ENCOUNTER 2021-02-02 08:10 | Day surgery (SDC) | payer BC, OTHER ==
[~2021-02-02] VITALS: Ht 160 cm; Wt 110.0 kg
[~2021-02-02 08:10] MED LIST changes: +ACETAMINOPHEN500 MG PO; +BACTRIM DS TAB1 EACH PO; +CRESTOR10 MG PO; +FENOFIBRATE160 MG PO; +HYDROCHLOROTHIA25 MG PO; +MOTRIN IB200 MG PO
--- NOTE | 2021-02-02 12:00 | NUR ---
02/02/21 1200 Natalia Pop 1153 PATIENT SLEEPING WITH SNORING RESP AT TIMES. RESP EVEN AND UNLABORED, MASK AT 6 LITERS. PATIENT AWAKENS WITH VERBAL STIMULI. BACK TO SLEEP WHEN NOT STIMULATED.
[2021-02-02] MEDS ORDERED: IBUPROFEN600 MG PO (12:34)
[2021-02-02] MEDS ORDERED: OXYCODON-ACETA1 EAC2 PO (12:35)
[2021-02-02] MEDS ORDERED: ACETAMINOPHEN500 MG PO (12:35)
--- NOTE | 2021-02-02 13:40 | NUR ---
EATING CRACKERS AND APPLESAUCE PRIOR TO PAIN PILL.
--- NOTE | 2021-02-02 14:14 | NUR ---
PT CALL LIGHT ON. PT REQUESTS TO TAKE "MY SECOND PAIN PILL." PT STATES SHE CONTINUES TO HAVE 7/10 PAIN AND WOULD LIKE TO TITRATE UP TO HER FULL DOSE OF MEDICATION. SEE MAR FOR MEDICATION GIVEN. PT REQUESTS ASSISTANCE UP TO RESTROOM. PT UP TO SIT ON EDGE OF BED, INDEPENDANT BUT PAINFUL. PT ABLE TO STAND AND TAKE STEPS IN PLACE. STAND BY ASSSIT AMBULATION TO RESTROOM. PT VOIDS 300ML CLEAR YELLOW URINE WITH OUT ISSUE. STAND BY ASSIST BACK TO ROOM. NO ADDITIONAL REQUESTS OR COMPLAINTS. CALL LIGHT WIHTIN REACH. BED RAILS UP. FAMILY AT BEDSIDE.
--- NOTE | 2021-02-02 14:45 | NUR ---
LAYING RATES PAIN 4/10 MOVING RATES PAIN 8/10. HAS BEEN MEDICATED. IS GIVEN AND INSTRUCTED PT. ALSO INSTRUCTED ON TAVON DRAIN.
--- NOTE | 2021-02-02 15:07 | NUR ---
SITTING ON SIDE OF BED. INSTRUCTED ON SPLINTING IF COUGHS, IS AND TAVON DRAIN.
--- NOTE | 2021-02-02 16:44 | NUR ---
SAT IN WC IN ROOM PER HER REQUEST EATING JELLO CRACKERS AND DRINKING APPLE JUICE. HAS BEEN UP TO BR ON OWN. USING IS TO 800 ON OWN. EMPTIED TAVON OF 10 MLS RED FLUID ON OWN. 1630 STATES SHES READY TO GO HOME. DCD PER WC WITH .
--- NOTE | 2021-02-03 09:44 | OR ---
[facility] [address] [place], [place] [address] Signed DATE OF OPERATION: 02/02/2021 SURGEON: Vic Lei MD PREOPERATIVE DIAGNOSES: 1. Incisional hernia of mid abdomen. 2. Morbid obesity. POSTOPERATIVE DIAGNOSES: 1. Incarcerated incisional hernia (omentum) of mid abdomen, nonstrangulated. 2. Morbid obesity. PROCEDURES: 1. Repair of incarcerated non-strangulated incisional hernia, fascial defect 6 cm plus. 2. Implantation of Prolene mesh, properitoneal space, underlay technique; prolonged, complicated, and difficult. ANESTHESIA: General endotracheal, Wesley Annmarie, NUCLEAR REACTOR OPERATOR and local 20 mL of 0.25% Marcaine with epinephrine. INDICATION: This 50-year-old morbidly obese [place] woman underwent operation by in on June 06, 2020 for a perforated jejunal diverticulum. A laparoscopic-assisted operation was undertaken of perforated small bowel with segmental bowel resection, end-to-end anastomosis for perforated jejunal diverticulum with abscess. The bowel had been manipulated out of the abdomen through an enlarged trocar site in the mid abdomen. The patient is rather significantly obese-- 242 pounds. Though the incision at the supraumbilical area was relatively small, she has since developed a rather large hernia. A CT scan was performed, which showed hollow viscus within it as well as omentum. It is increasing in size over time and is uncomfortable. She is offered repair at this time. The risks of bleeding, infection, recurrence, and other unforeseen complications related to its repair were reviewed with her and her in great detail. They understand and wished to proceed. FINDINGS: A very large amorphous hernia sac was noted in her rather thick abdominal pannus. The fascial defect ultimately was found to be approximately 6 cm or more. The hernia sac Electronically Signed By: VIC LEI MD 02/03/21 0944 PATIENT NAME: KAILEE ORTIZ OPERATIVE REPORT DATE OF : 66 REPORT #: [id number] PHYSICIAN: VIC LEI MD PCP: ENRICO FOWLER MD REPORT IS CONFIDENTIAL AND NOT TO BE RELEASED WITHOUT AUTHORIZATION [facility] [address] [place], [place] [address] Signed was excised ultimately and had contained incarcerated omentum and non-incarcerated small bowel. Repair consisted of development of the properitoneal space for 5 to 6 cm circumferentially with implantation of Prolene mesh in the properitoneal space. The peritoneum was closed over the intraabdominal viscera providing a biologic barrier between the mesh and the intraabdominal viscera. The [place] fascia itself was somewhat attenuated, but was reapproximated well over the mesh in a transverse orientation. Interrupted Prolene sutures with prolene pledgets were used. Overlap of the fascial defect in the properitoneal space was 4 cm to 6 cm overall. DESCRIPTION OF PROCEDURE: The patient was brought to the operating room, given a general endotracheal anesthetic. Preoperative antibiotics were given. Sequential compression device stockings were used. Heparin subcutaneously administered. The abdomen was prepared with a chlorhexidine solution and draped sterilely. The 4 cm incision in the supraumbilical area was incised and dissection carried through the subcutaneous tissue, which was rather generous. An amorphous hernia sac was ultimately identified with blunt electrocautery dissection. It was from the subcutaneous space. Incision was extended just a bit, given the large nature of the hernia sac. It appeared to have incarcerated omentum, but it did not appear to be strangulated in any way. Ultimately, the hernia sac was opened and the omentum reduced into the abdominal cavity. Excess hernia sac was excised circumferentially around the fascial defect, which measured approximately 6 to 8 cm. Due to her abdominal obesity, the fascia was noted to be somewhat attenuated, certainly not as significant as it could be. The fascial edges were secured and the properitoneal space developed circumferentially. This took a fair amount of time and effort, so as to avoid tearing of the peritoneal layer itself. This was reapproximated with running 2-0 Vicryl suture. The properitoneal space was fully developed and the peritoneal defect closed so as to provide a biologic barrier of mesh to the intraabdominal contents. A 6-inch x 6-inch Prolene mesh was cut to an oblong configuration and secured transversely into the properitoneal space. Interrupted 0 Prolene sutures with Prolene pledgets were used to secure this at least 4 to 6 cm from the fascial edge. In the lateral aspect on the left side, an additional 3-inch x 6-inch mesh was cut to configuration to secure more laterally; there was some overlap in the center portion of mesh. The fascial edges were then reapproximated transversely with 0 Prolene suture with Prolene pledgets securing the fascia over the mesh completely. 20 mL of 0.25% Marcaine with epinephrine was injected locally. Irrigation was undertaken. Through a separate stab incision, a 7 mm flat Miguel was placed. This secured the skin with nylon suture. Evaristo's layer was reapproximated with Electronically Signed By: VIC LEI MD 02/03/21 0944 PATIENT NAME: KAILEE ORTIZ PRAMOD OPERATIVE REPORT DATE OF : 66 REPORT #: [id number] PHYSICIAN: VIC LEI MD PCP: ENRICO FOWLER MD REPORT IS CONFIDENTIAL AND NOT TO BE RELEASED WITHOUT AUTHORIZATION [address] [place] [address] Signed interrupted 2-0 Vicryl and the skin was closed with running subcuticular 3-0 Vicryl. Steri-Strips were applied as was an Acticoat dressing. The patient tolerated procedure well, was extubated without complication including no excessive straining. An abdominal binder was applied as well. The drain had been applied to bulb suction. The operation was rather prolonged, complicated, and difficult lasting 3 times longer than usual. It was accomplished safely. MD QUIN Willis/VERONICA /[id number] cc: Enrico Fowler MD Copies: ENRICO FOWLER MD ~ Electronically Signed By: VIC LEI MD 02/03/21 0944 PATIENT NAME: KAILEE ORTIZ PRAMOD OPERATIVE REPORT DATE OF : 66 REPORT #: [id number] PHYSICIAN: VIC LEI MD PCP: ENRICO FOWLER MD REPORT IS CONFIDENTIAL AND NOT TO BE RELEASED WITHOUT AUTHORIZATION
--- NOTE | 2021-02-07 15:51 | PATH ---
[facility] [address] [place], [place] [address] Signed SPECIMEN(S): A HERNIA SAC SPECIMEN SOURCE: A. HERNIA SAC CLINICAL HISTORY: Incisional hernia repair. FINAL PATHOLOGIC DIAGNOSIS: Hernia sac, excision: - Fibromembranous tissue with focal reactive fibrosis and attached fibroadipose tissue, consistent with hernia sac. NAL:cml:C2NR MICROSCOPIC EXAMINATION: Histologic sections of all submitted blocks are examined by light microscopy. These findings, together with the gross examination, support the pathologic diagnosis. GROSS DESCRIPTION: The specimen, labeled "MB, hernia sac," is received in formalin and consists of an irregular shaped, pink-mccann, focally congested fibromembranous tissue fragment that measures 11.5 x 7.8 x 1.3 cm. Sectioning through the specimen is grossly unremarkable. Clinical Research Physician sections are submitted in cassette (A1). JS (under the direct supervision of a pathologist) The Gross Description was prepared using a voice recognition system. The report was reviewed for accuracy; however, sound-alike word errors, addition and/or deletions may occur. If there is any question about this report, please contact Client Services. PERFORMING LABORATORY: The technical component was performed by [employer], [address] [place] [id number] (Truck Driver Rubbish Collector: Mahnaz Rockwell MD; CLIA# [id number]). [facility] [address] [address] (CLIA# [id number]). Diagnostician: Clara Morrow MD Pathologist Electronically Signed 02/07/2021 PATIENT NAME: KAILEE ORTIZ PATHOLOGY DATE OF : 66 REPORT #: [id number] PHYSICIAN: [facility] PCP: ENRICO FOWLER MD REPORT IS CONFIDENTIAL AND NOT TO BE RELEASED WITHOUT AUTHORIZATION [address] [address] Signed Copies: ~ PATIENT NAME: KAILEE ORTIZ PATHOLOGY DATE OF : 66 REPORT #: [id number] PHYSICIAN: [facility] PATHOLOG[facility] PCP: ENRICO FOWLER MD REPORT IS CONFIDENTIAL AND NOT TO BE RELEASED WITHOUT AUTHORIZATION
== END 2021-02-02 16:30 | disposition home or self-care (01) ==
LOC: DS 08:10
PROVIDERS: ATTEND Surgery
PROC: 0WUF0JZ Supplement Abdominal Wall with Synthetic Substitute, Open Approach (ICD-10-PCS; principal; 2021-02-02 11:15)
DX: K43.0 Incisional hernia with obstruction, without gangrene (principal); E66.01 Morbid (severe) obesity due to excess calories; E11.9 Type 2 diabetes mellitus without complications; I10 Essential (primary) hypertension; G47.33 Obstructive sleep apnea (adult) (pediatric); Z90.49 Acquired absence of other specified parts of digestive tract; Z79.84 Long term (current) use of oral hypoglycemic drugs
CPT/HCPCS: 00832; C1781; J0690; J1100; J1170; J1644; J1885; J2001; J2250; J2405; J2704; J3010; J7121

== ENCOUNTER 2022-04-15 20:56 | Emergency (ER) | payer BC, OTHER ==
[~2022-04-15] VITALS: Ht 160 cm; Wt 106.5 kg
[~2022-04-15 20:56] MED LIST changes: +IBUPROFEN600 MG PO; +OXYCODON-ACETA1 EAC2 PO
[2022-04-15] MEDS ORDERED: OZEMPIC0.25 MG/0. SUB-Q (22:50)
[2022-04-15] MEDS ORDERED: HYDROCHLOROTHIA25 MG PO (22:50)
== END 2022-04-16 00:38 | disposition home or self-care (01) ==
LOC: ED 20:56
DX: U07.1 COVID-19 (principal); I10 Essential (primary) hypertension; E11.9 Type 2 diabetes mellitus without complications; Z79.899 Other long term (current) drug therapy; Z79.84 Long term (current) use of oral hypoglycemic drugs
CPT/HCPCS: 96374; 99284-25

== ENCOUNTER 2022-07-20 08:55 | Emergency (ER) | payer BC, OTHER ==
[~2022-07-20] VITALS: Ht 160 cm; Wt 106.1 kg
[~2022-07-20 08:55] MED LIST changes: +OZEMPIC0.25 MG/0. SUB-Q
[2022-07-20] MEDS ORDERED: TAMIFLU30 MG PO (12:37)
[2022-07-20] MEDS ORDERED: ONDANSETRON ODT4 MG PO (12:37)
== END 2022-07-20 12:43 | disposition home or self-care (01) ==
LOC: ED 08:55
DX: J10.1 Influenza due to other identified influenza virus with other respiratory manifestations (principal); I10 Essential (primary) hypertension; E11.9 Type 2 diabetes mellitus without complications; Z20.822 Contact with and (suspected) exposure to COVID-19; Z79.899 Other long term (current) drug therapy; Z79.84 Long term (current) use of oral hypoglycemic drugs
CPT/HCPCS: 36415; 80053; 83735; 84484; 85025; 87502; 96360; 96361; 99284-25; J7030; U0003

== ENCOUNTER 2025-04-11 15:44 | Emergency (ER) | payer BC, OTHER ==
[~2025-04-11] VITALS: Ht 160 cm; Wt 105.6 kg
[~2025-04-11 15:44] MED LIST changes: +ONDANSETRON ODT4 MG PO; +TAMIFLU30 MG PO
[2025-04-11] MEDS ORDERED: FLUTICASONE PRO16 GM NAS (15:57)
[2025-04-11 16:18] VITALS: BP 150/70
== END 2025-04-11 16:22 | disposition home or self-care (01) ==
LOC: ED 15:44
DX: S00.01XA Abrasion of scalp, initial encounter (principal); W22.8XXA Striking against or struck by other objects, initial encounter; I10 Essential (primary) hypertension; E11.9 Type 2 diabetes mellitus without complications; Z88.6 Allergy status to analgesic agent; Z79.899 Other long term (current) drug therapy
CPT/HCPCS: 99283